=== PATIENT | male | born 1955 | race Caucasian/White ===

== ENCOUNTER 2016-04-22 04:08 | Day surgery (SDC) | payer BC ==
[2016-04-17 12:12] LABS: HEMOGLOBIN 14.8 g/dL (13.6-17.8)
[2016-04-17 12:20] LABS: CALCIUM, SERUM 9.1 MG/DL (8.5-10.4); CHLORIDE, SERUM 106 MMOL/L (96-112); CO2 (CARBON DIOXIDE) 24 MMOL/L (24-34); CREATININE 1.15 MG/DL (0.70-1.30); GFR AFRICAN AMERICAN 79 ML/MIN (>=60); GFR NON AFRICAN AMERICAN 68 ML/MIN (>=60); GLUCOSE, SERUM 177 MG/DL (60-99); POTASSIUM, SERUM 4.3 MMOL/L (3.5-5.3); SODIUM, SERUM 141 MMOL/L (135-148)
[2016-04-17 12:23] LABS: BUN (BLOOD UREA NITROGEN) 18 MG/DL (6-23)
--- NOTE | ~2016-04-22 | OP ---
Record Of Operation [facility] [address] [place]. [address] NAME: PATRICIO SANTOS : 51 STATUS : [facility]#: [id number] AGE: 60 ADM/REG DATE : 04/22/16 MR#: [id number] REPORT SERV DATE: 04/23/16 DICTATED BY: ISH LEY DATE: 04/22/16 REPORT STATUS : Draft TRANSCRIBED BY: MODL DATE: 04/22/16 DATE OF PROCEDURE: 04/22/2016 PREOPERATIVE DIAGNOSES: Right osteoarthritis, large paralabral cyst with suprascapular neuropathy, biceps tendonitis. POSTOPERATIVE DIAGNOSES: Right osteoarthritis, large paralabral cyst with suprascapular neuropathy, biceps tendonitis. PROCEDURE: Right extensive debridement, suprascapular nerve release, and biceps tenodesis. SURGEON: Ish Ley M.D. COMPLICATIONS: None. ANESTHESIA: General endotracheal with regional block per Anesthesia. INDICATIONS: This 60-year-old male presented with predominantly a suprascapular neuropathy type syndrome with posterior shoulder pain. He had obvious shoulder arthritis, but had very little complaints of this clinically. He had a labral tear with a very large cyst and some biceps tenodesis. We discussed the staged approach of treating the soft tissue pathologies in the nerve and then performing a total shoulder replacement whenever that was deemed necessary clinically. Risks, benefits, and alternatives were discussed. The patient verbalized understanding and wished to proceed. DESCRIPTION OF PROCEDURE: Posterolateral portals were created for diagnostic arthroscopy, which revealed severe eburnation with bipolar cartilage loss. There was a macerated type 2 labral tear, extending posteriorly with severe extra-articular biceps tenosynovitis. The rotator cuff had some cholesterol-type deposits, but was structurally intact. The bursal side was intact. Debridement: A 5.5 cannula was localized with an outside-in spinal technique. We debrided from the anterior cannula the synovitis. The superior labrum was debrided extensively superiorly, anteriorly, and posteriorly. We performed a chondroplasty of the glenoid and the humeral head and removed the synovitis. The biceps was transected and allowed to retract. We then went to the bursal space. There was extensive scarring from this cyst, and we dissected over medially and were able to visualize the decompression of the cyst multiple times. This was a very large cyst, we visualized that from the bursal space. Suprascapular nerve release: We then made two accessory lateral portals. We dissected over and used the transtrapezial portal with the ASTL device. We retracted the supraspinatus muscle belly and found the transverse scapular ligament and decompressed more cyst, which had gone over close to the nerve. We then released the transverse scapular ligament. This nerve branch was almost intraligamentous, we carefully dissected that and visualized it. Biceps tenodesis: We then released the biceps sheath far flexed and externally rotated. We Record Of Operation [facility] [address] [place]. [address] NAME: PATRICIO SANTOS : 51 STATUS : [facility]#: [id number] AGE: 60 ADM/REG DATE : 04/22/16 MR#: [id number] REPORT SERV DATE: 04/23/16 DICTATED BY: ISH LEY. DATE: 04/22/16 REPORT STATUS : Draft TRANSCRIBED BY: DANIELLA DATE: 04/22/16 placed a double-loaded Bio-Corkscrew and used left clever hooks with interlocking Oscar- Delbert sutures to tenodese the biceps in the suprapectoral location. The remaining biceps was extirpated. The scope was withdrawn. The portals were closed with Monocryl, and Steri- Strips were applied. The patient tolerated the procedure well and was sent to PACU in stable condition. POSTOPERATIVE PLAN: Elbow range of motion, pendulums only. Sling for four weeks. Biceps protection. Shoulder range of motion is allowable. BERNICE/DANIELLA Ish Ley M.D. / [id number] CC: Janet Nicholas M.D.
[~2016-04-22 04:08] MED LIST: ACET500CAP PO; ALEVE PM PO; AMOX250 PO; ARTICHOKE PO; ASAB PO; ASABAYER PO; B1100 PO; BRILINTA 90 MG; CATAPRES2 TOP; CENTRUM PO; CENTRUM TAB1 TAB PO; COUMADIN4 MG PO; CYANO1000T PO; FOLIC PO; GLUCOPHAGE1000 MG PO; GLUCPH PO; HARD NAILS PO; INDO50 PO; INDO50SUPP PO; LIPITOR20 PO; LIPITOR80 MG PO; LISINOPRIL40 MG PO; MCZ25 PO; MOBIC15 MG PO; MONOPRIL HCT PO; MULTIPLE VIT PO; NORCO1 TA1 PO; PCET PO; POT GLUCONAT550 M1 PO; POTASSIUM GLUCONATE PO; PRIN10 PO; PRIN20 PO; PROTONIX PO; SEROQUEL25 PO; VITAMIN B-121000 MC1 SL; VITAMIN B-1500 MG PO; XANAX1 MG PO; ZEBETA5 PO; ZIAC5 PO; ZOCOR40 PO; [UNRECOGNIZED DRUG - REMARK] TOP
== END 2016-04-22 15:50 | disposition home or self-care (01) ==
LOC: SDC 04:08
PROVIDERS: Orthopaedic Surgery Sports Medicine
PROC: 0LS30ZZ Reposition Right Upper Arm Tendon, Open Approach (ICD-10-PCS; 2016-04-22)
PROC: 0RBJ0ZZ Excision of Right Shoulder Joint, Open Approach (ICD-10-PCS; principal; 2016-04-22 05:45)
DX: S43.431A Superior glenoid labrum lesion of right shoulder, initial encounter (principal); M75.21 Bicipital tendinitis, right shoulder; Z87.891 Personal history of nicotine dependence; E78.5 Hyperlipidemia, unspecified; I10 Essential (primary) hypertension; I25.10 Atherosclerotic heart disease of native coronary artery without angina pectoris; M19.90 Unspecified osteoarthritis, unspecified site; E11.9 Type 2 diabetes mellitus without complications
CPT/HCPCS: 80048; 82962; 85014; 85018; A9270-GY; C1713; J0360; J0690; J2250; J2270; J2405; J2710; J2795; J3010